=== PATIENT | female | born 1990 | race Two or more races ===

== ENCOUNTER 2020-10-08 12:01 | Emergency (ER) | payer BC, OTHER ==
[~2020-10-08] VITALS: Ht 152.4 cm; Wt 49.9 kg
[2020-10-08] MEDS ORDERED: AMMONIA 0.33 ML INHALANT IN ONE (12:29)
[2020-10-08] MEDS ORDERED: SODIUM CHLORIDE 0.9% 1,000 ML IV ONE ×4 (13:00→14:15)
[2020-10-08] MEDS ORDERED: LORazepam 2MG/ML-1ML VIAL IV ONE ×2 (13:00→14:30)
[2020-10-08] MEDS: SODIUM CHLORIDE 0.9% 1,000 ML IV ONE ×2 (13:00→14:24)
[2020-10-08 13:27] LABS: Basophils # (auto) 0.1 10 ^3/uL (0-0.2); Basophils % (auto) 0.9 % (0.0-2.0); Eosinophils # (auto) 0.2 10 ^3/uL (0-0.8); Eosinophils % (auto) 2.7 % (0.0-7.0); Hematocrit 42.1 % (36.0-46.0); Hemoglobin 14.3 g/dL (12.2-16.2); Lymphocytes # (auto) 2.6 10 ^3/uL (0.4-5.4); Lymphocytes % (auto) 35.1 % (10.0-50.0); Mean Corpuscular Hemoglobin 31.5 pg (28.0-32.0); Mean Corpuscular Hgb Conc. 33.9 g/dL (32.0-36.0); Mean Corpuscular Volume 92.9 fL (80.0-100.0); Monocytes # (auto) 0.6 10 ^3/uL (0-1.3); Monocytes % (auto) 7.6 % (0.0-12.0); Neutrophils % (auto) 53.7 % (37.0-80.0); Nucleated Red Blood Cells % 0.1 %; Platelet Count (auto) 254 10^3/uL (140-450); Red Blood Cells 4.53 10^6/uL (4.0-5.20); Red Cell Distribution Width 12.6 % (11.8-14.3); White Blood Cell 7.5 10^3/uL (4.4-10.8)
[2020-10-08 13:31] LABS: Albumin 4.2 g/dL (3.4-5.0); Calcium 9.2 mg/dL (8.5-10.1)
[2020-10-08 13:34] LABS: Bilirubin, Total 1.2 mg/dL (0.2-1.0); Total Protein 7.7 g/dL (6.4-8.2)
[2020-10-08 13:49] LABS: Urine Bacteria MANY /hpf (None Seen); Urine Blood 1+ /uL (Negative); Urine Specific Gravity 1.006 (1.001-1.035); Urine WBC 13 /hpf (0 - 5)
[2020-10-08 14:13] LABS: Amphetamine Screen, Urine NEGATIVE (NEGATIVE); Barbiturate Scree,Urine NEGATIVE (NEGATIVE); Benzodiazephine Screen, Urine NEGATIVE (NEGATIVE); Cannabinoid Screen, Urine NEGATIVE (NEGATIVE); Cocaine Screen, Urine NEGATIVE (NEGATIVE); Opiate Scree,Urine NEGATIVE (NEGATIVE); Phencyclidine Screen, Urine NEGATIVE (NEGATIVE)
[2020-10-08] MEDS ORDERED: NITROFURANTOIN 100 mg CAP PO ONE (16:45)
[2020-10-08] MEDS: QUEtiapine FUMARATE 25 MG TAB PO SCH (23:30)
[2020-10-09 08:29] VITALS: BP 103/71
[2020-10-09] MEDS ORDERED: BACITRACIN TOP OINT 1 UD PKG TOP ONE (10:37)
== END 2020-10-09 09:12 | disposition short-term general hospital (02) ==
LOC: ER 12:01
DX: R45.851 Suicidal ideations (principal); F41.9 Anxiety disorder, unspecified; G93.41 Metabolic encephalopathy; Z20.822 Contact with and (suspected) exposure to COVID-19
CPT/HCPCS: 36415; 70450; 71045; 80053; 80307; 81001; 85025; 87426; 96361; 96374; 96376; 99285; C9803; J2060; J7030; U0003